=== PATIENT | male | born 1980 | race Caucasian/White ===

== ENCOUNTER 2022-09-01 06:55 | Day surgery (SDC) | payer OTHER ==
[2022-09-01] VITALS (223 sets, daily range): BP systolic 80–204; BP diastolic 47–123
[~2022-09-01] VITALS: Ht 196 cm; Wt 91.6 kg
[2022-09-01 08:22] LABS: BASO% 0.8 % (0-3); EOS% 2.4 % (0-8); HEMATOCRIT 44.8 % (39.0-50.0); HEMOGLOBIN 14.8 g/dl (14.0-18.0); IMMATURE GRANULOCYTES 0.3 % (0.0-5.0); LYMPH% 26.5 % (15-41); MEAN CORPUSCULAR HGB 29.7 pG CALC (26.0-32.0); MONO% 6.3 % (2-13); NEUT# 4.72 thou/uL (1.82-7.42); NEUT% 63.7 % (42-76); RED BLOOD COUNT 4.98 mill/uL (4.70-6.10)
[2022-09-01 08:45] LABS: ALKALINE PHOSPHATASE 117 u/l (38-126); ANION GAP 14 (6-22 (CALC)); BILIRUBIN, TOTAL 0.8 mg/dL (0.2-1.3); BUN 13 mg/dL (9-20); BUN/CREATININE RATIO 15 (12-20 (CALC)); CARBON DIOXIDE 27 mmol/l (22-30); CHLORIDE 106 mmol/l (95-108); CREATININE 0.9 mg/dL (0.7-1.3); GFR FOR AFR.AMER. > 60 ML/MIN (>=60 (CALC)); GFR OTHER RACES > 60 ML/MIN (>=60 (CALC)); POTASSIUM 4.8 mmol/l (3.5-5.1); SGOT/AST 59 u/l (17-59); SODIUM 142 mmol/l (137-146); TOTAL PROTEIN 8.5 g/dL (6.3-8.2)
[2022-09-01] MEDS ORDERED: KLONOPIN2 MG PO (17:24)
[2022-09-01] MEDS ORDERED: CLONIDINE0.1 MG PO (17:24)
[2022-09-01] MEDS ORDERED: NALTREXONE50 MG PO (17:24)
[2022-09-02 03:57] LABS: BASO% 0.1 % (0-3); HEMATOCRIT 41.2 % (39.0-50.0); HEMOGLOBIN 14.3 g/dl (14.0-18.0); IMMATURE GRANULOCYTES 0.9 % (0.0-5.0); LYMPH% 6.3 % (15-41); MEAN CELL VOLUME 86.6 fL CALC (80.0-100.0); MEAN CORPUSCULAR HGB CONC 34.7 g/dL CAL (32.0-36.0); MONO% 0.7 % (2-13); NEUT# 12.62 thou/uL (1.82-7.42); RED BLOOD COUNT 4.76 mill/uL (4.70-6.10); RED CELL DISTRI WIDTH 11.4 % (11.5-15.5)
[2022-09-02 04:12] LABS: ALBUMIN 4.6 g/dL (3.2-5.0); ALKALINE PHOSPHATASE 133 u/l (38-126); BUN 12 mg/dL (9-20); BUN/CREATININE RATIO 16 (12-20 (CALC)); CHLORIDE 108 mmol/l (95-108); CREATININE 0.8 mg/dL (0.7-1.3); GFR FOR AFR.AMER. > 60 ML/MIN (>=60 (CALC)); GFR OTHER RACES > 60 ML/MIN (>=60 (CALC)); MAGNESIUM 2.1 mg/dL (1.6-2.3); SGOT/AST 44 u/l (17-59); SODIUM 139 mmol/l (137-146)
[2022-09-02 04:14] LABS: ANION GAP 16 (6-22 (CALC)); BILIRUBIN, TOTAL 1.2 mg/dL (0.2-1.3); CARBON DIOXIDE 19 mmol/l (22-30); POTASSIUM 3.8 mmol/l (3.5-5.1)
[2022-09-02 04:16] VITALS: BP 129/80
[2022-09-02 07:38] VITALS: BP 129/80
== END 2022-09-02 17:21 | disposition home or self-care (01) | DRG 897 ==
LOC: MS2 06:55 → ANR 06:55 → MS2 09-02 17:21 → ANR 09-02 17:21
PROVIDERS: ATTEND Anesthesiology
DX: F11.20 Opioid dependence, uncomplicated (principal)
CPT/HCPCS: J0131; J2060; J2354; J3475